=== PATIENT | male | born 1940 | race Caucasian/White ===

== ENCOUNTER → 2017-03-24 | Outpatient (CLI) | payer OTHER ==
[~2017-03-24] MED LIST: /AMIO20TA OR; ALBU17IN INH; ALDA25TA2 PO; ATEN25TA PO; ATEN50TA2 OR; ATOR1TAB19 PO; BENA40TA2 OR; BENA40TA7 PO; BISO10TA PO; COZA50TA PO; DEMA20TA6 PO; GLIM2TA PO; GLIM2TAB PO; GLUC500T PO; ISOS30TA4 PO; LUTE20CA PO; LUTEIN PO; Lutein PO; MAGN400T5 PO; METF500T4 OR; MULTIVIT PO; NORV5TAB OR; OMEG100011 PO; OMEGA 3 PO; PAIN325T OR; PRED20TA PO; SIMV20TA2 OR; SITA50TAB PO; SPIR25TA2 PO; VERAP80TA PO; VITMTA PO; WARF-23 PO; [UNRECOGNIZED DRUG - OTHER] PO; hydrochlorothiazide
--- NOTE | 2017-03-24 21:02 | REP ---
NUCLEAR RENAL SCAN WITH FLOW AND FUNCTION: 03/24/2017. Clinical history: Chronic renal disease, stage III, renal vascular hypertension. Technique: The patient received 8.8 mCi technetium 99m Mag III with flow and function curves demonstrated. The renal flow images show symmetric flow, which is slightly delayed and somewhat diminished overall visually. The function evaluation shows split function 52.8% for the left kidney and 47. 2% for the right kidney. The time of maximum activity on the left is 3 minutes, on the right is 2 minutes and therefore delayed on the left. T-1/2 of maximum activity on the left is 21.3 minutes, on the right greater than 30 minutes. [place] of the function curve on both sides is diminished. Visually, there is no abnormal tracer accumulation in the renal sinus region to suggest hydronephrosis. Activity reaches the bladder with the prevoid image and postvoid image showing diminished activity over the bladder. Impression: Diminished somewhat delayed flow bilaterally in a fairly symmetric pattern and decreased kidney function demonstrated bilaterally, left more than right with flattening of the slope of the function curves with T-1/2 maximum at 21.3 minutes left, and greater than 30 minutes right (normal 10.5 - 11 minutes). No abnormal tracer accumulation in the collecting systems to suggest hydronephrosis. Signed by David Holland MD 03/25/2017 06:58 P
--- NOTE | 2017-03-25 06:26 | REP ---
Clinical: Stage III chronic renal disease. Technique: Real time silva scale ultrasound examination using curved array transducer. Findings: The bilateral kidneys demonstrate prominent central sinus fat and linear parenchymal echogenicity is consistent with chronic medical renal disease and renovascular calcifications. No hydronephrosis, nephrolithiasis, cystic or mass lesion identified. No perinephric fluid collection noted. Right kidney measures 11.2 x 4.8 x 6.4 cm. Left kidney measures 12.6 x 4.8 x 6.1 cm. The bladder is incompletely distended and grossly unremarkable. Impression: Chronic medical renal disease. Signed by Tera Maurice MD 03/25/2017 06:18 A
== END ==
LOC: M RAD 08:29
PROVIDERS: ATTEND Internal Medicine Nephrology
DX: N18.3 Chronic kidney disease, stage 3 (moderate) (principal); I15.0 Renovascular hypertension
CPT/HCPCS: 76775; 78707; A9562

== ENCOUNTER → 2017-06-01 | Outpatient (CLI) | payer OTHER ==
[~2017-06-01] MED LIST changes: +E-Z-GAS II EFFERVESCENT PACKET (SODIUM BICARB./CITRIC ACID/SIMETHICONE) As Ordered ONE; +E-Z-HD 98% w/w 340GM SUSP BTL As Ordered ONE; +E-Z-PAQUE 96% w/w SUSP 176GM BTL As Ordered ONE
--- NOTE | 2017-06-01 14:47 | REP ---
CT Head without contrast HISTORY: Infarction COMPARISON: None Areas of decreased attenuation are present in the periventricular and subcortical white matter. This represents small-vessel ischemic disease. There is no intraparenchymal hemorrhage, acute infarct, mass or midline shift. The ventricular system and cortical sulci are dilated consistent with mild volume loss. There is no extra cerebral collection. There is no fracture. 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 IMPRESSION: 1. Small vessel ischemic disease. 2. Mild volume loss. Signed by Trey Plata MD 06/01/2017 02:39 P
--- NOTE | 2017-06-02 03:41 | REP ---
Clinical: Transient ischemic attack . Technique: Lackey scale and color Doppler evaluation using linear high frequency transducer Findings: Two-dimensional lackey scale and color images demonstrate normal arterial lumen with laminar flow and no appreciable narrowing. Very minimal amount of mixed plaque material is identified at the left carotid bulb and proximal internal carotid artery. Color Doppler interrogation demonstrates normal arterial wave patterns and velocities with no significant spectral broadening. Normal flow direction is appreciated in the bilateral vertebral arteries. RIGHT (cm/s) LEFT (cm/s) ICA peak systolic velocity 56.0 46.0 ICA diastolic velocity 10.0 13.7 ECA peak systolic velocity 66.5 61.8 CCA peak systolic velocity 57.2 80.1 ICA/CCA ratio 0.98 0.57 Impression: No hemodynamically significant areas of narrowing or stenosis appreciated. Based on set standards narrowing falls within the less than 50% range. Signed by Tera Maurice MD 06/02/2017 03:32 A
== END ==
LOC: M RAD 14:06
PROVIDERS: ATTEND Psychiatry & Neurology Neurology
DX: Z86.73 Personal history of transient ischemic attack (TIA), and cerebral infarction without residual deficits (principal); I63.032 Cerebral infarction due to thrombosis of left carotid artery

== ENCOUNTER → 2018-06-01 | Outpatient (REF) | payer OTHER | LOC: M SMT 13:32 | DX: R97.20 Elevated prostate specific antigen [PSA] (principal); Z79.899 Other long term (current) drug therapy | CPT/HCPCS: 87086 ==

== ENCOUNTER 2019-01-03 06:13 | Emergency (ER) | payer MEDICARE, OTHER ==
[~2019-01-03] VITALS: Ht 165.1 cm; Wt 95.5 kg
[~2019-01-03 06:13] MED LIST changes: -/AMIO20TA OR; +AMIO1TAB OR; -BISO10TA PO; +BISO10TA13 PO; -E-Z-GAS II EFFERVESCENT PACKET (SODIUM BICARB./CITRIC ACID/SIMETHICONE) As Ordered ONE; -E-Z-HD 98% w/w 340GM SUSP BTL As Ordered ONE; -E-Z-PAQUE 96% w/w SUSP 176GM BTL As Ordered ONE; -GLIM2TA PO; +GLIM2TAB29 PO
[2019-01-03] MEDS ORDERED: PEG1POW PO (07:29)
[2019-01-03] MEDS ORDERED: MAGN500T6 PO (07:29)
[2019-01-03 07:30] LABS: BASO % 0.4 % (0.0-1.0); EOS # 0.2 10^3/uL (0.0-0.50); EOS % 2.4 % (0.0-3.0); HEMATOCRIT 38.5 % (42.0-52.0); HEMOGLOBIN 12.2 g/dl (13.5-17.5); LYMPH # 0.6 10^3/uL (1.5-4.5); LYMPH % 5.9 % (24.0-44.0); MEAN CORPUSCULAR HEMOGLOBIN 27.2 pg (27.0-33.0); MEAN CORPUSCULAR HGB CONC 31.7 g/dl (32.0-36.5); MEAN CORPUSCULAR VOLUME 85.9 fl (80.0-96.0); MONO # 0.7 10^3/uL (0.0-0.8); MONO % 7.1 % (0.0-5.0); NEUTROPHILS # 7.8 10^3/uL (1.8-7.7); NEUTROPHILS % 83.8 % (36.0-66.0); PLATELET COUNT, AUTOMATED 213 10^3/uL (150-450); RED BLOOD COUNT 4.48 10^6/uL (4.30-6.10); WHITE BLOOD COUNT 9.3 10^3/uL (4.0-10.0)
[2019-01-03] MEDS ORDERED: VERAPAMIL 80 MG TAB PO ONE ×2 (07:30→16:00)
[2019-01-03] MEDS ORDERED: BETA0.0543 TOP (07:38)
[2019-01-03] MEDS ORDERED: VITAD1000T PO (07:38)
[2019-01-03] MEDS ORDERED: VALS1TAB49 PO (07:38)
[2019-01-03] MEDS ORDERED: PRES10CA2 PO (07:38)
[2019-01-03] MEDS ORDERED: ASPI81CH33 PO (07:38)
[2019-01-03 07:41] LABS: INR 2.69; PROTHROMBIN TIME 29.2 SECONDS (12.1-14.4)
[2019-01-03] MEDS ORDERED: BISOPROLOL FUMARATE 5 MG TAB PO ONE (07:45)
[2019-01-03] MEDS ORDERED: BISOPROLOL FUMARATE 10 MG TAB PO ONE (08:00)
[2019-01-03] MEDS ORDERED: METF-839 PO (08:12)
[2019-01-03] MEDS ORDERED: VERAP80TA PO (08:12)
[2019-01-03] MEDS ORDERED: TORS10TA3 PO (08:12)
--- NOTE | 2019-01-03 12:15 | ECGEPIP ---
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
[2019-01-03 14:21] LABS: INR 2.02; PROTHROMBIN TIME 23.2 SECONDS (12.1-14.4)
[2019-01-03] MEDS ORDERED: PERCOCET 5MG/325MG TAB PO ONE (15:15)
[2019-01-03] MEDS ORDERED: VALSARTAN 40MG TABLET (DIOVAN) PO ONE (16:00)
[2019-01-03 16:11] VITALS: BP 134/102
[2019-01-03] MEDS ORDERED: KEFL500C17 PO (16:28)
[2019-01-03 16:35] VITALS: BP 150/98
--- NOTE | 2019-01-03 16:37 | ER ---
DATE OF CONSULTATION: 01/03/2019 REQUESTING PHYSICIAN: ER physician at [facility] REASON FOR CONSULTATION: Patient with epistaxis. This pleasant 78-year-old gentleman has a history of a pacemaker as well as being placed on Coumadin. States he has ever had any significant nosebleeds and around 05:30 this morning got up to go the bathroom and started having bleeding. The past 2 weeks apparently his primary care physician has elevated his Coumadin levels because his INRs were low. At which time, after continuing to bleed, he did go to the emergency room at [facility] where he had a nasal pack placed in the left nasal cavity. According to the ER physician it was a 7 cm long one and his bleeding continued. Initially when he was at the hospital his bleeding had stopped but then it started up when he would go to the bathroom. His blood pressure has been elevated throughout his course at the hospital and he has required medications to try and keep that under control. I did talk with the emergency room physician initially and we agreed that if he continued to have bleeding, place another pack in the right nasal cavity, which they did do and also talk to his primary care doctor about reversing the anticoagulation which was in the process of being performed. He was given FFP and he had a repeat INR of 2.02 which is closer to therapeutic but of course is still elevated. His blood pressures continued to be quite high and off and on ranges between 182-112. At times it does come back down to 137/87 but then it goes back up and at 1504 hours was back up to 180/113. I was asked to come and evaluate the patient to see if there is any further things that could be done with regards to his bleeding. He is starting to form some clot. states that if he stays still he does fairly good but when he gets up to go the bathroom or if he starts to get agitated he starts to have more bleeding issues. Past medical history is significant for pacemaker that was placed in 2005. He is a former smoker. He does have hypertension as well. He has had colorectal cancer in the past, also gastrointestinal bleeding before, otherwise noncontributory. PHYSICAL EXAMINATION: The patient is in the emergency room, initially had nasal pack in both the left and the right side. The nasal pack in the left cavity was filled with air. This was taken out and then was refilled with saline and this seemed to control the bleeding much better. There was a large posterior clot down in the posterior oropharynx and topical 4% lidocaine was sprayed approximately 1 mL with an atomizer and a large blood clot was removed from the posterior oropharynx which was going into hypopharynx. The patient felt significant relief after this was removed. Attention then was drawn to reevaluating the patient and his blood pressure at that time was 180/90. I did talk with the nurse. At that time his repeat INR had not been done after the FFP which she did draw and came back later at INR of 2.02. Blood pressure continues to be around 180-113 and the patient is getting medications to help control that. Currently he seems to be in no acute distress and relatively relaxed at this time. The pinna are within normal limits. External canals of what could be seen showed no discrete obvious lesions. At this point the rest of the TMs could be partially visualized, currently there is no hematoma present and there is no blood in the middle ear at this time. However, that may change in the future. Neck is supple. Posterior oropharynx again there is no further bleeding after the clot was removed. The patient was observed as well. The labs showed white count was 9.3, hemoglobin was 12.2, hematocrit 38.5, platelet count was 213. His initial PT was 29.2 and initial INR was 2.69 and on recheck the patient's PT was 23.2 and INR was 2.02. IMPRESSION: Patient with epistaxis with significantly elevated hypertension with packing bilaterally, also on anticoagulation via warfarin. Currently controlled with the bilateral packing. He is starting to form clot at this point. We will observe him in the emergency room. He will need to have better compliance of his blood pressure medications and if he continues to bleed it may be prudent to give him more FFP as opposed to taking him to the operating room as we do not know the extent of his cardiac status at this point. The patient would prefer not going to the operating room and prefer medical management if possible. PLAN: At this point the patient will need to have better blood pressure management as per primary care physician. We will keep the packing in for at least 3 days and if all goes well he can be discharged if his blood pressure is controlled and his Coumadin is held and there is no further bleeding. Otherwise may need to consider another unit of FFP. I did call back around 3:50 p.m. and talked to the resident who states that he is doing much better. There is no bleeding in the posterior oropharynx and minimal oozing anteriorly and the patient would like to go home as opposed to considering other alternatives. The resident as well as previous physicians were told to consider starting him on Keflex as well which they acknowledge. At this point he can followup with us in 3 days with the packing and hold the Coumadin and then reevaluate. Hopefully his blood pressure will be better controlled at that time and hopefully he can followup with his primary care physician with control of his blood pressure as well.
[2019-01-07] MEDS ORDERED: ASPI81TA85 PO (04:55)
[2019-01-07] MEDS ORDERED: GLIM2TAB29 PO (04:55)
[2019-01-07] MEDS ORDERED: VENTAER INH (04:55)
[2019-01-07] MEDS ORDERED: KEFL500C17 PO (04:55)
[2019-01-07] MEDS ORDERED: BISO10TA6 PO (04:55)
[2019-01-07] MEDS ORDERED: JANU25TA PO (04:55)
[2019-01-07] MEDS ORDERED: WARF-23 PO (04:55)
== END 2019-01-03 16:38 | disposition home or self-care (01) ==
LOC: M ED 06:13
DX: R04.0 Epistaxis (principal); Z79.01 Long term (current) use of anticoagulants; I10 Essential (primary) hypertension; I48.91 Unspecified atrial fibrillation; E11.9 Type 2 diabetes mellitus without complications; Z95.0 Presence of cardiac pacemaker; Z85.038 Personal history of other malignant neoplasm of large intestine; Z87.19 Personal history of other diseases of the digestive system; Z91.010 Allergy to peanuts; Z79.899 Other long term (current) drug therapy
CPT/HCPCS: 30903; 36415; 36430; 85025; 85610; 86850; 86900; 86901; 86927; 93005; 99285; P9017

== ENCOUNTER → 2019-03-04 | Outpatient (REF) | payer MEDICARE ==
[~2019-03-04] MED LIST changes: +ASPI81CH33 PO; +ASPI81TA85 PO; +BETA0.0543 TOP; +BISO10TA7 PO; +JANU25TA PO; +KEFL500C17 PO; +MAGN500T6 PO; +METF-839 PO; +PEG1POW PO; +PRES10CA2 PO; +TORS10TA3 PO; +VALS1TAB49 PO; +VENTAER INH; +VITAD1000T PO
[2019-03-04 14:09] LABS: PERCENT SATURATION 5.9 % (19.7-50.0)
== END ==
LOC: M LAB REF 12:39
PROVIDERS: ATTEND Internal Medicine
DX: D50.9 Iron deficiency anemia, unspecified (principal)

== ENCOUNTER 2020-04-22 07:55 | Emergency (ER) | payer MEDICARE ==
[~2020-04-22] VITALS: Ht 165.1 cm; Wt 95.0 kg
[~2020-04-22 07:55] MED LIST changes: -ASPI81TA85 PO; +ASPI81TA86 PO; +BENA40TA5 PO; -BENA40TA7 PO; +BISO10TA14 PO; -BISO10TA7 PO; +CHOL100029 PO; -GLIM2TAB PO; +GLIM2TAB4 PO; -VALS1TAB49 PO; +VALS40TA9 PO; -VITAD1000T PO
[2020-04-22] MEDS ORDERED: ELIQ5TAB PO (08:13)
[2020-04-22] MEDS ORDERED: NS 500 ML IV ONE (08:30)
[2020-04-22 08:42] LABS: HEMATOCRIT 45.4 % (42.0-52.0); HEMOGLOBIN 14.9 g/dl (13.5-17.5); MEAN CORPUSCULAR HEMOGLOBIN 29.7 pg (27.0-33.0); MEAN CORPUSCULAR HGB CONC 32.8 g/dl (32.0-36.5); MEAN CORPUSCULAR VOLUME 90.6 fl (80.0-96.0); PLATELET COUNT, AUTOMATED 200 10^3/uL (150-450); RED BLOOD COUNT 5.01 10^6/uL (4.30-6.10); WHITE BLOOD COUNT 7.2 10^3/uL (4.0-10.0)
[2020-04-22 09:10] LABS: ALBUMIN 3.5 GM/DL (3.2-5.2); BILIRUBIN,TOTAL 0.7 MG/DL (0.2-1.0); CALCIUM LEVEL 8.6 MG/DL (8.8-10.2); CREATININE FOR GFR 1.44 MG/DL (0.70-1.30); GLOMERULAR FILTRATION RATE 50.5 (>42); POTASSIUM SERUM 3.9 MEQ/L (3.5-5.1); TOTAL PROTEIN 6.7 GM/DL (6.4-8.2)
[2020-04-22 09:14] LABS: HEMOGLOBIN A1c 6.8 %
[2020-04-22 11:32] VITALS: BP 151/86
--- NOTE | 2020-05-06 07:27 | ECGEPIP ---
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
--- NOTE | 2020-05-22 10:33 | REP ---
CERVICAL SPINE CT WITHOUT CONTRAST CLINICAL: Trauma. Fall. TECHNIQUE: Axial images from the skull base to the thoracic inlet with coronal and sagittal reformations. FINDINGS: Straightening of normal lordosis is nonspecific. Age-related osteopenia and moderate-advanced multilevel degenerative changes are noted. No acute fracture/compression injury or subluxation. Posterior elements and spinous processes are intact. Spinal canal is patent. Paravertebral soft tissues are normal. IMPRESSION: Age-related osteopenia and multilevel degenerative spondylosis. No acute fracture/compression injury or subluxation. MTDD
--- NOTE | 2020-05-22 10:35 | REP ---
NONCONTRAST HEAD CT CLINICAL: Fall. TECHNIQUE: Axial noncontrast images from the skull base to the vertex with coronal reformations. COMPARISON: 06/01/2017. FINDINGS: Age-related atrophy with microvascular ischemic changes, periventricular leukomalacia, and old basal ganglia lacunar infarct again noted. Ventricles are symmetric. Lackey-white differentiation is maintained. No acute intracranial hemorrhage, mass, or mass effect. No extra-axial fluid collection. Calvarium is intact. Paranasal sinuses and mastoid air cells are clear. IMPRESSION: Age-related atrophy and microvascular ischemic changes. No acute intracranial pathology or trauma/injury. MTDD
--- NOTE | 2020-05-22 10:36 | REP ---
PORTABLE CHEST X-RAY CLINICAL: Fall. COMPARISON: 08/14/2016. FINDINGS: Mediastinum and cardiac silhouette are stable with cardiomegaly and pacemaker again noted. Lung ordonez are clear. No consolidation, effusion, or pneumothorax. Skeletal structures are intact. IMPRESSION: Stable chest x-ray. No acute cardiopulmonary process. MTDD
== END 2020-04-22 11:35 | disposition home or self-care (01) ==
LOC: M ED 07:55
DX: S09.90XA Unspecified injury of head, initial encounter (principal); W18.39XA Other fall on same level, initial encounter; Y92.018 Other place in single-family (private) house as the place of occurrence of the external cause; I10 Essential (primary) hypertension; E11.9 Type 2 diabetes mellitus without complications; J45.909 Unspecified asthma, uncomplicated; I48.91 Unspecified atrial fibrillation; Z79.899 Other long term (current) drug therapy; Z79.01 Long term (current) use of anticoagulants; Z91.010 Allergy to peanuts; F17.210 Nicotine dependence, cigarettes, uncomplicated

== ENCOUNTER → 2020-05-24 | Outpatient (REF) ==
[~2020-05-24] MED LIST changes: +ELIQ5TAB PO
[2020-05-24 08:07] LABS: HEMATOCRIT 32.9 % (42.0-52.0); HEMOGLOBIN 10.5 g/dl (13.5-17.5); MEAN CORPUSCULAR HEMOGLOBIN 28.9 pg (27.0-33.0); MEAN CORPUSCULAR HGB CONC 31.9 g/dl (32.0-36.5); MEAN CORPUSCULAR VOLUME 90.6 fl (80.0-96.0); PLATELET COUNT, AUTOMATED 117 10^3/uL (150-450); RED BLOOD COUNT 3.63 10^6/uL (4.30-6.10); WHITE BLOOD COUNT 4.6 10^3/uL (4.0-10.0)
== END ==
LOC: SKLAB5 07:24
PROVIDERS: ATTEND Internal Medicine
DX: D72.829 Elevated white blood cell count, unspecified (principal)

== ENCOUNTER → 2020-05-28 | Outpatient (REF) ==
[2020-05-28 07:39] LABS: BLOOD UREA NITROGEN 28 MG/DL (7-18); CARBON DIOXIDE LEVEL 29 MEQ/L (21-32); CHLORIDE LEVEL 105 MEQ/L (98-107); CREATININE FOR GFR 1.01 MG/DL (0.70-1.30); GLOMERULAR FILTRATION RATE > 60.0 (>42); GLUCOSE, FASTING 109 MG/DL (70-100); MAGNESIUM LEVEL 2.3 MG/DL (1.8-2.4); POTASSIUM SERUM 4.2 MEQ/L (3.5-5.1); SODIUM LEVEL 139 MEQ/L (136-145)
== END ==
LOC: SKLAB5 07:22
PROVIDERS: ATTEND Internal Medicine
DX: G40.909 Epilepsy, unspecified, not intractable, without status epilepticus (principal); I50.9 Heart failure, unspecified; E11.9 Type 2 diabetes mellitus without complications

== ENCOUNTER → 2020-06-12 | Outpatient (REF) | payer MEDICARE | LOC: M LAB REF 16:42 | PROVIDERS: ATTEND Internal Medicine | DX: G40.89 Other seizures (principal); I48.20 Chronic atrial fibrillation, unspecified ==

== ENCOUNTER → 2020-07-07 | Outpatient (CLI) | payer MEDICARE ==
[~2020-07-07] MED LIST changes: +ATOR80TA59 PO; +D31000TA2 PO; +FARX1TAB3 PO; +FERR325T16 PO; +KEPP1TAB2 PO; +PRESCAP PO; +VALS1TAB68 PO
== END ==
LOC: M LABSMTC 10:07
PROVIDERS: ATTEND Anesthesiology
DX: Z01.812 Encounter for preprocedural laboratory examination (principal); Z20.828 Contact with and (suspected) exposure to other viral communicable diseases

== ENCOUNTER 2020-07-12 06:15 | Day surgery (SDC) | payer MEDICARE ==
[~2020-07-12] VITALS: Ht 165.1 cm; Wt 92.5 kg
[2020-07-12] MEDS ORDERED: ceFAZolin SOD 2 GM in IV 1 EA IV ONE (07:00)
[2020-07-12] MEDS ORDERED: LR 1,000 ML IV ONE (07:00)
[2020-07-12] MEDS ORDERED: LIDOCAINE 1% SDV 30ML VIAL As Ordered ONE (07:08)
[2020-07-12] MEDS ORDERED: BACITRACIN PWD 50,000 UNITS VIAL As Ordered ONE (07:08)
[2020-07-12] MEDS ORDERED: propofoL 200 MG/20 ML VIAL As Ordered ONE (07:14)
[2020-07-12] MEDS ORDERED: fentaNYL 100 MCG/2 ML INJECTION (J3010) As Ordered ONE (07:14)
[2020-07-12] MEDS ORDERED: MIDAZOLAM INJ 2MG/2ML VIAL (J2250 PER 1MG) As Ordered ONE (07:14)
[2020-07-12] MEDS ORDERED: LIDOCAINE 2% 100MG/5ML SDV (FOR ANES.) As Ordered ONE (07:15)
[2020-07-12] MEDS ORDERED: KETOROLAC 60MG 2ML VIAL As Ordered ONE (08:00)
[2020-07-12] MEDS ORDERED: ONDANSETRON 4MG/2ML VIAL As Ordered ONE (08:00)
[2020-07-12 09:30] VITALS: BP 117/67
--- NOTE | 2020-07-12 11:57 | RO ---
DATE OF OPERATION: 07/12/2020 PROCEDURE: * Explantation of depleted dual chamber pulse generator. * Testing of old atrial and ventricular pacing leads. * Capping off the old atrial pacing lead. * Implantation of single chamber ventricular pulse generator. VISITING TEACHER: Addison Stacy MD, [facility] ANESTHESIOLOGIST: Yuan Burger DO PREOPERATIVE DIAGNOSES: * Pacemaker battery depletion. * Tachybrady syndrome. * Permanent atrial fibrillation. POSTOPERATIVE DIAGNOSES: * Pacemaker battery depletion. * Tachybrady syndrome. * Permanent atrial fibrillation. TYPE OF ANESTHESIA: Monitored local anesthesia. CLINICAL SUMMARY: This is a 79-year-old resident of [place]. He is well known to our cardiology practice with hypertensive and mitral valvular heart disease complicated by abnormal EKG, tachybrady syndrome/dual chamber pacemaker implant November 18, 2005, post-RF ablation of atrial fibrillation/flutter, and heart failure (systolic and diastolic dysfunction). He has been followed on a regular basis through our office and was recently found to have his pacemaker at the elective replacement indicator. At this point he does not feel restricted and is free of all cardiovascular complaints. EKG 06/26/2020 shows atrial fibrillation with spontaneous ventricular activity averaging 77 beats per minute. A complete blood count May 24, 2020 showed a hemoglobin of 10.5, normal white blood cell count and platelet count. Chemistry May 14, 2020 showed electrolyte balance with a BUN 29, creatinine 1.14. EXAMINATION: He is a pleasant overweight elderly male laying comfortably flat. Heart rate 76 beats per minute and irregular, blood pressure 126/68 sitting, respiratory rate 16, BMI 31.6. No pallor or cyanosis. Normal oral moisture. Trachea midline. Neck veins were 3 cm above the sternal angle. Normal-appearing chest configuration with well-healed left subclavian pacemaker incision. Good air entry in both lung ordonez with no evident abnormal adventitious sounds. Apical impulse not palpable. S1 and S2 were variable. No audible gallops or murmur despite documented mild mitral insufficiency on echocardiogram June 17, 2018. Peripheral pulses were normal. No dependent edema. DESCRIPTION OF PROCEDURE: The patient in the fasting state having signed informed consent and having received Ancef 2 gm IV premedication, he was taken to the operating theatre. Numerous skin electrodes were applied to facilitate continuous electrocardiographic monitoring. The left subclavian region was prepped and draped in the usual fashion and the skin over the old incision was infiltrated with 1% Xylocaine. A 5 cm linear incision was made several over the same site and careful dissection was then performed down to the level of the plated pacemaker. The old pacemaker was then explanted ([employer] model number 5366, serial number [id number] originally implanted November 18, 2005) and the old pacing leads were then disconnected and tested independently. The atrial lead ([employer] model number 1388T serial number [id number]) showed totally erratic electrical activity consistent with his atrial fibrillation. At this point this lead was capped off and placed back in the pocket. The ventricular lead ([employer] model number 1388T, serial number [id number]) measurements were focal and stimulation threshold 1.3 V/0.4 ms/impedance 394 ohms. The R wave amplitude measured 11.8 mV. This old ventricular pacing lead was then connected to a single chamber pulse generator ([employer] compatible model number BF0136, serial number [id number]) and appropriate VVI pacing was documented. The old pacer pocket with thoroughly irrigated with a Bacitracin solution and the new pulse generator was placed in the pocket. The subcutaneous tissues were approximated using a running chromic suture and the skin was closed using zeeshan. A dry dressing was applied and the patient was returned to the recovery room in good condition. ESTIMATED BLOOD LOSS: Less than 5 mL. No apparent complications. The patient will be able to leave once he is fully alert and ambulatory. FINAL DIAGNOSES: * Depleted pacemaker pulse generator battery replaced. * Tachybrady syndrome. * Permanent atrial fibrillation old atrial pacing lead has been capped off. DISCHARGE RECOMMENDATIONS AND MEDICATIONS: The patient has been requested to perform light activities of daily living with his left arm until his zeeshan are removed in my office in seven to ten days time. He will resume his modest salt intake restriction. Medications will resume: - Bisoprolol 10 mg twice a day - Verapamil 120 mg by mouth three times a day - Eliquis 5 mg twice a day - Atorvastatin 80 mg once daily at bedtime - Valsartan 320 mg by mouth daily - Farxiga 10 mg as directed - Proventil inhaler two puffs four times daily p.r.n. - Keppra 750 mg by mouth twice a day - Magnesium oxide 400 mg p.o. twice daily - Vitamin D3 1000 international units daily - PreserVision medication one tablet twice a day - Melatonin 3 mg by mouth once daily at bedtime as needed - Ferrous sulfate 324 mg one tablet twice a day - MiraLax as necessary - Glimepiride 2 mg by mouth daily - Multivitamin one tablet daily - Betamethasone topical ointment 0.05% applied to affected area twice a day He has been encouraged to contact our office for any abnormal erythema, swelling or discharge. DUSTIN
== END 2020-07-12 09:30 | disposition home or self-care (01) ==
LOC: M SDC 06:15
PROVIDERS: ATTEND Internal Medicine Cardiovascular Disease
DX: T82.111A Breakdown (mechanical) of cardiac pulse generator (battery), initial encounter (principal); E11.22 Type 2 diabetes mellitus with diabetic chronic kidney disease; I10 Essential (primary) hypertension; I48.20 Chronic atrial fibrillation, unspecified; I13.0 Hypertensive heart and chronic kidney disease with heart failure and stage 1 through stage 4 chronic kidney disease, or unspecified chronic kidney disease; R94.31 Abnormal electrocardiogram [ECG] [EKG]; I50.42 Chronic combined systolic (congestive) and diastolic (congestive) heart failure; N18.9 Chronic kidney disease, unspecified; G40.909 Epilepsy, unspecified, not intractable, without status epilepticus; E78.00 Pure hypercholesterolemia, unspecified; I69.351 Hemiplegia and hemiparesis following cerebral infarction affecting right dominant side; R06.83 Snoring; G47.33 Obstructive sleep apnea (adult) (pediatric); Z79.01 Long term (current) use of anticoagulants; Z79.899 Other long term (current) drug therapy; Z85.038 Personal history of other malignant neoplasm of large intestine; Z86.2 Personal history of diseases of the blood and blood-forming organs and certain disorders involving the immune mechanism; Z91.010 Allergy to peanuts
CPT/HCPCS: 33212; C1786; J0690; J1885; J2250; J2405; J3010

== ENCOUNTER → 2020-12-21 | Outpatient (REF) | payer MEDICARE ==
[~2020-12-21] MED LIST changes: +FERR324T21 PO; -FERR325T16 PO; +ISOS1TAB35 PO; -ISOS30TA4 PO; -PEG1POW PO; +POLY17PO18 PO; +VERA80TA3 PO; -VERAP80TA PO
== END ==
LOC: M LAB REF 11:22
PROVIDERS: ATTEND Internal Medicine
DX: G40.89 Other seizures (principal)

== ENCOUNTER → 2021-04-02 | Outpatient (REF) | payer MEDICARE | LOC: M LAB REF 13:04 | PROVIDERS: ATTEND Internal Medicine Nephrology | DX: E11.22 Type 2 diabetes mellitus with diabetic chronic kidney disease (principal); E83.42 Hypomagnesemia ==

== ENCOUNTER → 2021-04-16 | Outpatient (CLI) | payer MEDICARE ==
--- NOTE | 2021-04-17 11:08 | REP ---
INDICATION: URINE RETENTION COMPARISON: None TECHNIQUE: Real time B-mode ultrasound examination using curved array transducer. FINDINGS: Bladder appears relatively under distended despite patient's feeling of fullness and bladder wall thickening cannot definitively be assessed. No obvious bladder mass lesion identified. Left ureteral jet noted during examination. Prevoid bladder measures 7.1 x 7.4 x 4.1 cm (112 cc). Postvoid bladder measures empty Postvoid residual: 0% IMPRESSION: 1. Limited assessment of the bladder as described above. No obvious intrinsic abnormality identified. <Electronically signed by Tera Maurice > 04/16/21 [id number]
== END ==
LOC: M RAD 13:17
PROVIDERS: ATTEND Internal Medicine Nephrology
DX: R33.9 Retention of urine, unspecified (principal)

== ENCOUNTER → 2021-06-24 | Outpatient (REF) | payer MEDICARE | LOC: M LAB REF 13:27 | PROVIDERS: ATTEND Internal Medicine | DX: G40.89 Other seizures (principal) ==

== ENCOUNTER → 2021-10-01 | Outpatient (REF) | payer MEDICARE ==
[~2021-10-01] MED LIST changes: -BENA40TA5 PO; +BENA40TA84 PO
== END ==
LOC: M LAB REF 16:34
PROVIDERS: ATTEND Nurse Practitioner Adult Health
DX: G40.909 Epilepsy, unspecified, not intractable, without status epilepticus (principal); Z79.899 Other long term (current) drug therapy; Z79.51 Long term (current) use of inhaled steroids; Z79.01 Long term (current) use of anticoagulants

== ENCOUNTER → 2022-01-21 | Outpatient (CLI) | payer MEDICARE ==
[~2022-01-21] MED LIST changes: -D31000TA2 PO; +VITA100093 PO
[2022-01-21 14:51] LABS: CALCIUM LEVEL 8.8 MG/DL (8.8-10.2); CREATININE FOR GFR 1.46 MG/DL (0.70-1.30); GLOMERULAR FILTRATION RATE 49.5 (>35); POTASSIUM SERUM 4.3 MEQ/L (3.5-5.1)
== END ==
LOC: M PLALAB 10:38
PROVIDERS: ATTEND Physician Assistant
DX: I50.42 Chronic combined systolic (congestive) and diastolic (congestive) heart failure (principal)

== ENCOUNTER → 2022-07-22 | Outpatient (REF) | payer MEDICARE ==
[2022-07-23 13:41] LABS: FERRITIN 51.5 NG/ML (10.5-307.3)
[2022-07-23 14:45] LABS: DIGOXIN LEVEL 0.9 NG/ML (0.8-2.0)
== END ==
LOC: M LAB REF 12:16
PROVIDERS: ATTEND Internal Medicine
DX: D50.9 Iron deficiency anemia, unspecified (principal); I48.20 Chronic atrial fibrillation, unspecified

== ENCOUNTER → 2022-12-15 | Outpatient (REF) | payer MEDICARE ==
[2022-12-15 13:19] LABS: DIGOXIN LEVEL 2.1 NG/ML (0.8-2.0)
[2022-12-15 13:22] LABS: FERRITIN 35.7 NG/ML (10.5-307.3)
== END ==
LOC: M LAB REF 12:12
PROVIDERS: ATTEND Internal Medicine
DX: D50.9 Iron deficiency anemia, unspecified (principal); I48.20 Chronic atrial fibrillation, unspecified

== ENCOUNTER → 2022-12-22 | Outpatient (REF) | payer MEDICARE ==
[~2022-12-22] MED LIST changes: -COZA50TA PO; +LOSA-528 PO
== END ==
LOC: M LAB REF 16:14
PROVIDERS: ATTEND Internal Medicine
DX: I48.20 Chronic atrial fibrillation, unspecified (principal)

== ENCOUNTER → 2023-06-05 | Outpatient (REF) | payer MEDICARE | LOC: M LAB REF 11:56 | PROVIDERS: ATTEND Internal Medicine | DX: N40.0 Benign prostatic hyperplasia without lower urinary tract symptoms (principal) ==

== ENCOUNTER → 2024-01-05 | Outpatient (CLI) | payer MEDICARE | LOC: M PLAIMG 13:03 | PROVIDERS: ATTEND Internal Medicine | DX: F03.90 Unspecified dementia, unspecified severity, without behavioral disturbance, psychotic disturbance, mood disturbance, and anxiety (principal) ==

== ENCOUNTER → 2024-01-22 | Outpatient (REF) | payer MEDICARE ==
[2024-01-22 18:30] LABS: CARCINOEMBRYONIC ANTIGEN < 2.0 NG/ML (<2.5)
[2024-01-22 18:45] LABS: CA19-9 TUMOR MARKER,CARBOHYDRA 24.5 U/ML (<35.0)
== END ==
LOC: M LAB REF 16:45
PROVIDERS: ATTEND Internal Medicine
DX: C18.9 Malignant neoplasm of colon, unspecified (principal); Z85.09 Personal history of malignant neoplasm of other digestive organs

== ENCOUNTER → 2024-02-08 | Outpatient (CLI) | payer MEDICARE ==
[~2024-02-08] MED LIST changes: +GASTROGRAFIN SOLUTION 30ML ONE; +ISOVUE-370 76% 100ML VIAL ONE
== END ==
LOC: M PLAIMG 09:15
PROVIDERS: ATTEND Internal Medicine
DX: R10.9 Unspecified abdominal pain (principal); R63.4 Abnormal weight loss; Z98.0 Intestinal bypass and anastomosis status; K59.00 Constipation, unspecified; Z85.038 Personal history of other malignant neoplasm of large intestine
CPT/HCPCS: 74177; Q9963; Q9967

== ENCOUNTER → 2025-04-17 | Outpatient (REF) | payer OTHER ==
[~2025-04-17] MED LIST changes: -GASTROGRAFIN SOLUTION 30ML ONE; -ISOVUE-370 76% 100ML VIAL ONE
[2025-04-17 19:25] LABS: IRON (FE) 6.0 UG/DL (65-175); PERCENT SATURATION 2.7 % (19.7-50.0)
[2025-04-17 19:42] LABS: DIGOXIN LEVEL 1.6 NG/ML (0.8-2.0)
== END ==
LOC: M LAB REF 17:25
PROVIDERS: ATTEND Internal Medicine
DX: D50.9 Iron deficiency anemia, unspecified (principal); G40.909 Epilepsy, unspecified, not intractable, without status epilepticus; Z79.899 Other long term (current) drug therapy

== ENCOUNTER → 2025-05-15 | Outpatient (CLI) | payer OTHER | LOC: M EKG 14:05 | PROVIDERS: ATTEND Physician Assistant | DX: I49.5 Sick sinus syndrome (principal) ==

== ENCOUNTER → 2025-06-16 | Outpatient (CLI) | payer OTHER ==
[~2025-06-16] MED LIST changes: +BARIUM SULFATE 700 MG TABLET As Ordered ONE; +E-Z-PAQUE 96% w/w SUSP 176 GM BTL As Ordered ONE; +VARIBAR NECTAR 40% w/v 240ML SUSP BTL As Ordered ONE; +VARIBAR PUDDING 40% w/v 230ML TUBE As Ordered ONE
== END ==
LOC: M RAD 11:49
PROVIDERS: ATTEND Internal Medicine
DX: R13.10 Dysphagia, unspecified (principal)

== ENCOUNTER 2025-07-03 09:22 | Emergency (ER) | payer OTHER ==
[~2025-07-03] VITALS: Ht 165.1 cm; Wt 76.1 kg
[~2025-07-03 09:22] MED LIST changes: -BARIUM SULFATE 700 MG TABLET As Ordered ONE; -E-Z-PAQUE 96% w/w SUSP 176 GM BTL As Ordered ONE; -VARIBAR NECTAR 40% w/v 240ML SUSP BTL As Ordered ONE; -VARIBAR PUDDING 40% w/v 230ML TUBE As Ordered ONE
[2025-07-03 10:22] LABS: BASO # 0.0 10^3/uL (0.0-0.2); BASO % 0.4 % (0.0-1.0); EOS # 0.2 10^3/uL (0.0-0.5); EOS % 2.1 % (0.0-3.0); LYMPH # 0.5 10^3/uL (1.5-5.0); LYMPH % 6.1 % (24.0-44.0); MONO # 0.7 10^3/uL (0.0-0.8); MONO % 9.2 % (2.0-8.0); NEUTROPHILS # 6.2 10^3/uL (1.5-8.5); NEUTROPHILS % 81.7 % (36.0-66.0); PLATELET COUNT, AUTOMATED 204 10^3/uL (150-450)
[2025-07-03 10:52] LABS: CALCIUM LEVEL 8.3 MG/DL (8.3-10.6); CARBON DIOXIDE LEVEL 30.0 MMOL/L (20-31); CHLORIDE LEVEL 103.0 MMOL/L (98-107); CREATININE FOR GFR 1.11 MG/DL (0.70-1.30); GLOMERULAR FILTRATION RATE 65.9 (>35); POTASSIUM SERUM 4.0 MMOL/L (3.5-5.1); SODIUM LEVEL 143.0 MMOL/L (136-145)
[2025-07-03] MEDS ORDERED: DONE10TA90 PO (15:03)
[2025-07-03] MEDS ORDERED: FAMO1TAB11 PO (15:03)
[2025-07-03] MEDS ORDERED: MULTTAB61 PO (15:03)
[2025-07-03] MEDS ORDERED: LEVE500T5 PO (15:03)
[2025-07-03] MEDS ORDERED: MEMA10TA PO (15:03)
[2025-07-03] MEDS ORDERED: TAMS1CAP17 PO (15:03)
[2025-07-03] MEDS ORDERED: VALS1TAB66 PO (15:03)
[2025-07-03] MEDS ORDERED: TRUL0.5I INJ (15:03)
[2025-07-03] MEDS ORDERED: FARX1TAB5 PO (15:03)
[2025-07-03] MEDS ORDERED: FINA5TAB2 PO (15:03)
[2025-07-03] MEDS ORDERED: VERA120C9 PO (15:03)
[2025-07-03] MEDS ORDERED: HOME MED LIST COMPLETE! XX SCH (15:05)
[2025-07-03] MEDS: VALSARTAN 80MG TAB PO ONE (15:40)
[2025-07-03 15:41] VITALS: BP 195/110
[2025-07-03] MEDS: VERAPAMIL 40 MG TAB PO ONE (15:41)
[2025-07-03 16:37] VITALS: TEMP 100.2
[2025-07-03 17:00] VITALS: BP 174/73; O2SAT 93
== END 2025-07-03 17:10 | disposition home or self-care (01) ==
LOC: M ED 09:22
DX: C34.91 Malignant neoplasm of unspecified part of right bronchus or lung (principal); B34.1 Enterovirus infection, unspecified; I71.22 Aneurysm of the aortic arch, without rupture; J91.8 Pleural effusion in other conditions classified elsewhere; I48.91 Unspecified atrial fibrillation; I45.2 Bifascicular block; I10 Essential (primary) hypertension; Z91.010 Allergy to peanuts; Z79.01 Long term (current) use of anticoagulants; Z79.51 Long term (current) use of inhaled steroids; Z79.899 Other long term (current) drug therapy; Z79.4 Long term (current) use of insulin; Z79.84 Long term (current) use of oral hypoglycemic drugs